=== PATIENT | male | born 1955 | race Hispanic/Latino ===

== ENCOUNTER 2017-04-15 00:51 | Emergency (ER) | payer MEDICARE ==
--- NOTE | 2017-04-15 00:57 | ED.REPORT ---
HPI-Dyspnea / Wheezing Date of Service Apr 15, 2017 ED Provider: Stalin Guzman MD The pt is a 61 y/o male w/ a hx of CHF presenting to the ED complaining of SOB. He uses home oxygen and has run out, causing his SOB. Nursing Notes Stated Complaint: SHORTNESS OF BREATH Chief Complaint: SOB Nursing Notes Reviewed: Yes General Time Seen by MD: 00:57 Chief Complaint Shortness of breath Hx Obtained From: Patient Arrived By: Walk-in Sudden in Onset?: Yes Onset Occurred: Just prior to arrival Symptom Duration: Since onset Recent Healthcare: No recent doctor visit, No recent hospitalization Similar Sx Previous: Yes Past Medical History Past Medical History CHF Past Surgical History None reported Smoking History Unknown if Ever Smoker Social History None reported Ambulatory Status Independent Review of Systems Basic Review of Systems Eyes: Vision NL GI: No abdominal pain, No anorexia : No dysuria Hematologic: No bleeding Endocrine: No cold intolerance Neurologic: NL mental status, No weakness Psychiatric: Normal thought content Respiratory: Reports: Shortness of breath, Denies: Dyspnea on exertion, Pleuritic pain Cardiovascular: Denies: Chest pain Musculoskeletal: Reports: Extremity swelling Skin: Denies Diaphoresis Complete sys rev & neg: except as marked. Physical Exam Initial Vital Signs Vital Signs (First) Date Time Temp Pulse Resp B/P Pulse Ox O2 Delivery O2 Flow Rate FiO2 04/15/17 01:02 36. 20 175/120 93 Nasal Cannula 3 04/15/17 03:04 75 Initial VS: Reviewed Head / Eyes: Atraumatic, Normocephalic, PERRL ENT: Mucous membranes moist, Conjunctiva normal, No scleral icterus Abdomen / GI: Soft, Non-tender, No guarding, No rebound, No distention Extremities: Vascular intact, Neuro intact, No swelling, No tenderness Skin: Warm, Dry, No cyanosis Neurologic: Alert, Oriented, Nonfocal Psychiatric: Mood/affect normal, Behavior normal, Normal thought content General/Constitutional: Awake, Alert Neck: Atraumatic, Supple, Full range of motion, No JVD Respiratory / Chest: Atraumatic, Breath sounds NL, Breath sounds = bilat No crackles; Pt presented hypoxic but improved after supplemental oxygen was given. Cardiovascular: Heart rate NL, Regular rhythm, Heart sounds NL No edema; Re-Eval/Medical Decision Med Decision/Clinical Course Mr. Stanley is very explicit in that he declines x-ray, laboratory work, EKG or any diagnostics. He requests that his oxygen be refilled. He was placed on our wall oxygen and his sat was in the mid 90s and he is very comfortable. He was awake, alert and oriented 4. He was not cachectic. His oxygen saturation was 97%. He was in my opinion sober and lucid. He is here requesting oxygen and nothing else. I feel that he is competent and of sound mind and body to make his own medical decisions. We will provide him with oxygen and recommend close outpatient follow-up. I did not feel that I could restrain him against his will for any form of diagnostics. Re-Evaluation/Progress : Time of Eval: 02:08 Re-Evaluation/Progress Note: Pt declined x-ray imaging. F/U instructions and RTER warnings given. All questions addressed. Counseled Regarding: Diagnosis, Need for follow-up, When/why to return to ED Discharge & Departure Impression: Primary Impression: CHF (congestive heart failure) Congestive heart failure type: unspecified congestive heart failure type Congestive heart failure chronicity: unspecified congestive heart failure chronicity Qualified Code: I50.9 - Heart failure, unspecified Additional Impression: Hypoxia Disposition: Home Discharge Condition All VS Reviewed: Yes Condition: Stable Patient Instructions: Heart Failure (ED), Hypoxia (ED) Additional Instructions: Thank you for coming into the emergency department today. It is recommended that you have a chest x-ray, bloodwork, and an EKG. Use the O2 as instructed and see your primary care provider to get it refilled. Please return to the emergency department if you experience any new or worsening symptoms. I hope you feel better soon. Return if any problems or any new or worrisome symptoms. Return if you change your mind about the diagnostics. Referrals: Sabrina Hinojosa Scribe Attestation Portions of this note were transcribed by Blayne Pratt. I, Dr. Gzuman personally performed the history, physical exam and medical decision-making; I reviewed and confirmed the accuracy of the information in the transcribed note. copies to: Sabrina Hinojosa Todd P DO Apr 15, 2017 00:57 Blayne Pratt Apr 15, 2017 02:09
[2017-04-15 01:02] VITALS: BP 175/120; RESP 20; O2SAT 93
[2017-04-15 03:04] VITALS: BP 153/94; PULSE 75; RESP 18; O2SAT 93
== END 2017-04-15 03:04 | disposition home or self-care (01) ==
LOC: SED 00:51
DX: I50.9 Heart failure, unspecified (principal); R09.02 Hypoxemia; Z99.81 Dependence on supplemental oxygen